=== PATIENT | male | born 1980 | race Caucasian/White ===

== ENCOUNTER 2023-12-02 09:33 | Emergency (ER) | payer BC ==
[2023-12-02 09:47] VITALS: RESP 20
[2023-12-02] MEDS ORDERED: TORAdol 30 mg Injection ONE (10:12)
[2023-12-02] MEDS ORDERED: Norflex 60 MG/2 ML ONE (10:12)
[2023-12-02] MEDS: TORAdol 30 mg Injection IM ONE (10:16)
[2023-12-02] MEDS: Norflex 60 MG/2 ML IM ONE (10:16)
--- NOTE | 2023-12-02 10:46 | ERPHSYRPT ---
- History of Present Illness Time Seen by Provider: 12/02/23 09:46 Source: patient Exam Limitations: no limitations Patient Subjective Stated Complaint: Pt states "I have this pain in my left lower back that goes down the back of my leg. I am seeing a chiropracter and I went to [facility] yesterday and they gave me flexeril and prednisone but I cannot sleep because of the pain." Triage Nursing Assessment: Pt presented alert and oriented X 3, skin pwd. Pt ambulates with a slow hunched over gait. PT unable to sit still. Physician History: 43 years old male presented in the ER with chief complaint of left lower back pain for over a month after he picked up heavy boxes. Patient reports moderate intensity dull aching to sharp pain, more with activity and better with resting. He has been seen outpatient at chiropractor and also [facility] currently on prednisone and muscle relaxants but because of increasing pain having hard time sleeping. Patient reports lately pain is not well-controlled with taking [id number] medications along with prescription 1 as well. It radiates from the left lower back to the hip with no numbness tingling or weakness of lower extremities, no loss of bowel or bladder control or perineal numbness. No midline back pain. No difficulty range of motion of the hip. Allergies/Adverse Reactions: No Known Drug Allergies Allergy (Verified 12/02/23 09:47) Home Medications: Cyclobenzaprine HCl 10 mg [Cyclobenzaprine 10 MG] 10 mg PO DAILY 12/02/23 [History] Prednisone 20 mg [Deltasone 20 mg] 20 mg PO DAILY 12/02/23 [History] Hx Tetanus, Diphtheria Vaccination/Date Given: Yes Hx Influenza Vaccination/Date Given: No Hx Pneumococcal Vaccination/Date Given: No Immunizations Up to Date: Yes Travel Risk - International Travel Have you traveled outside of the country in past 3 weeks: No - Coronavirus Screening Are you exhibiting any of the following symptoms?: No Close contact with a COVID-19 positive Pt in past 14-21 Days: No - Vaccine Status Have you recieved a Covid-19 vaccination: No - Review of Systems Constitutional: No Symptoms Ears, Nose, & Throat: No Symptoms Respiratory: No Symptoms Cardiac: No Symptoms Abdominal/Gastrointestinal: No Symptoms Genitourinary Symptoms: No Symptoms Musculoskeletal: Back Pain Skin: No Symptoms Neurological: No Symptoms Psychological: No Symptoms Endocrine: No Symptoms - Past Medical History Pertinent Past Medical History: No - Past Surgical History Past Surgical History: Yes Other Surgical History: hernia - Social History Smoking Status: Never smoker Exposure to second hand smoke: No Drug Use: none Patient Lives Alone: No - Nursing Vital Signs Nursing Vital Signs: Initial Vital Signs Temperature 98.7 F 12/02/23 09:42 Pulse Rate 64 12/02/23 09:42 Respiratory Rate 20 12/02/23 09:42 Blood Pressure 147/90 12/02/23 09:42 O2 Sat by Pulse Oximetry 97 12/02/23 09:42 Pain Scale Pain Intensity [Left Lower 6 Back] Pain Intensity 4 - Physical Exam General Appearance: no apparent distress, alert Eye Exam: PERRL/EOMI Neck Exam: normal inspection, full range of motion Respiratory Exam: normal breath sounds, lungs clear Cardiovascular Exam: regular rate/rhythm, normal heart sounds Gastrointestinal Exam: soft, normal bowel sounds, No tenderness Back Exam: normal inspection, normal range of motion, No vertebral tenderness, No point tenderness Extremity Exam: normal inspection, normal range of motion Neurologic Exam: alert, oriented x 3, cooperative, 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 Skin Exam: normal color SpO2 Interpretation: normal SpO2: 95 O2 Delivery: Room Air Ordered Tests: Medication Summary Discontinued Medications Generic Name Dose Route Start Last Admin Trade Name Freq PRN Reason Stop Dose Admin Ketorolac Tromethamine 30 mg 12/02/23 10:11 12/02/23 10:16 Ketorolac Tromethamine 30 Mg/Ml Inj IM 12/02/23 10:12 30 mg STAT ONE Administration Ketorolac Tromethamine Confirm 12/02/23 10:12 Ketorolac Tromethamine 30 Mg/Ml Inj Administered 12/02/23 10:13 Dose 30 mg .ROUTE .STK-MED ONE Orphenadrine Citrate 60 mg 12/02/23 10:11 12/02/23 10:16 Orphenadrine Citrate 60 Mg/2 Ml Vial IM 12/02/23 10:12 60 mg STAT ONE Administration Orphenadrine Citrate Confirm 12/02/23 10:12 Orphenadrine Citrate 60 Mg/2 Ml Vial Administered 12/02/23 10:13 Dose 60 mg .ROUTE .STK-MED ONE - Progress Progress: improved, pain not gone completely, re-examined Progress Note: 12/02/23 10:44 43-year-old is evaluated in the ER for left lower back pain with some radiation to left hip. Patient has negative neuro exam in lower extremities. Straight leg raising test negative at 90 degrees. Patient has no abdominal pain. No midline back tenderness at all. No flank tenderness. I believe patient is having pain in this sacroiliac joint area. I have given him Toradol and Norflex in here, on reevaluation feeling better. Do not think patient needs any imaging. I would continue with diclofenac to go home along with muscle relaxants he is on. Discussed signs symptoms of worsening needing return to ER which he seems understanding. Stable for discharge. Since patient is having issues with sleep, I would stop his prednisone as patient is given NSAID which has pretty much the same mechanism and controlling inflammation. 12/02/23 10:46 Counseled pt/family regarding: diagnosis, need for follow-up Medical Desision Making - Diagnostic Testing Diagnostic test were ordered, analyzed, and reviewed by me: No - Risk of complications The pt has a mod risk of morbidity or mortality based on: Need for prescription drug management - Departure Departure Disposition: Home Clinical Impression: Low back strain Condition: Stable Critical Care Time: No Referrals: MERLINE LOVELACE [Primary Care Provider] - Follow up with PCP 1 day Instructions: Low Back Pain (DC) Additional Instructions: Avoid exertional activities. Stop taking prednisone. Continue with muscle relaxants. Take Tylenol/diclofenac as needed. Follow-up with your primary care physician for reevaluation in 1 to 2 days. Return to ER for any worsening of pain, numbness tingling weakness of lower extremities, loss of bowel or bladder control/perineal numbness etc. Prescriptions: Diclofenac Sodium 50 mg [Voltaren 50 mg] 50 mg PO TID PRN 10 Days #25 tablet PRN Reason: Pain
[2023-12-02 11:03] VITALS: BP 139/68; PULSE 56; TEMP 97.2; O2SAT 94
[2023-12-02] MEDS ORDERED: NORCO 5/325 MG ONE (11:05)
[2023-12-02] MEDS: NORCO 5/325 MG PO ONE (11:07)
== END 2023-12-02 11:35 | disposition home or self-care (01) ==
LOC: ED 09:33
DX: S39.012A Strain of muscle, fascia and tendon of lower back, initial encounter (principal); X50.0XXA Overexertion from strenuous movement or load, initial encounter; Z79.899 Other long term (current) drug therapy; Z28.310 Unvaccinated for COVID-19
CPT/HCPCS: 96372; 99283; J1885; J2360; A9270-GY